=== PATIENT | male | born 1965 | race American Indian/Alaskan Native ===

== ENCOUNTER 2020-04-27 14:24 | Emergency (ER) | payer SELFPAY ==
[2020-04-27 15:06] LABS: Basophils # (Auto) 0.1 K/mm3 (0.0-0.1); Basophils % (Auto) 0.9 % (0.0-1.8); Eosinophils # (Auto) 0.2 K/mm3 (0.0-0.4); Eosinophils % (Auto) 2.4 % (0.0-4.3); Hematocrit 45.5 % (35.5-45.6); Hemoglobin 15.5 gm/dl (11.8-15.2); Lymphocytes # (Auto) 1.8 K/mm3 (1.2-5.4); Lymphocytes % (Auto) 28.2 % (13.4-35.0); Mean Corpuscular HGB Conc 34 % (32-34); Mean Corpuscular Volume 93 fl (84-94); Monocytes # (Auto) 0.9 K/mm3 (0.0-0.8); Monocytes % (Auto) 14.3 % (0.0-7.3); Platelet Count 409 K/mm3 (140-440); Red Blood Count 4.89 M/mm3 (3.65-5.03); Red Cell Distribution Width 14.2 % (13.2-15.2)
[2020-04-27 15:25] LABS: Alanine Aminotransferase 11 units/L (7-56); Albumin 4.3 g/dL (3.9-5); Blood Urea Nitrogen 10 mg/dL (9-20); Calcium 10.2 mg/dL (8.4-10.2); Hemolysis Index 11
[2020-04-27 15:32] LABS: BUN/Creatinine Ratio 17
[2020-04-27 15:35] LABS: Free T4 (Free Thyroxine) 1.39 ng/dL (0.76-1.46)
--- NOTE | 2020-04-27 17:38 | Emergency Department Report ---
- General Chief complaint: Weakness Stated complaint: NO FEELING IN LEG/TOES Time Seen by Provider: 04/27/20 17:27 Source: patient Mode of arrival: Ambulatory Limitations: No Limitations - History of Present Illness Initial comments: Chief complaint "I just feel cold." HPI: This is a 54-year-old male with history of Crohn's disease and tobacco dependence who presents with chills tingling in his fingers and toes. Also has had weight loss. He recently moved with his girlfriend 1 month ago from [place]. He has been under a lot of stress. He admits to poor appetite due to s tress. Symptoms have been present for 1 week. Patient denies abdominal pain. Denies diarrhea. Denies vomiting. He has not had primary medical care in quite some time. He smokes tobacco daily. He drinks alcohol once a week. MD Complaint: generalized weakness, tingling (In extremities, overall feels cold) -: Gradual, week(s) (1) Location: generalized Severity: moderate Consistency: constant Improves with: none Worsens with: none Context: other (Patient has been under stress., He recently moved from [facility] 30 days ago.) Associated Symptoms: loss of appetite - Related Data Allergies Allergy/AdvReac Type Severity Reaction Status Date / Time No Known Allergies Allergy Unverified 04/27/20 14:42 ED Review of Systems ROS: Stated complaint: NO FEELING IN LEG/TOES Other details as noted in HPI Comment: All other systems reviewed and negative Cardiovascular: denies: chest pain Gastrointestinal: denies: abdominal pain, nausea, vomiting, diarrhea ED Past Medical Hx - Past Medical History Previous Medical History?: No - Surgical History Past Surgical History?: No - Social History Smoking Status: Current Every Day Smoker ED Physical Exam - General Limitations: No Limitations General appearance: alert, in no apparent distress, other (Patient slender small stature) - Head Head exam: Present: atraumatic, normocephalic - Eye Eye exam: Present: normal appearance - ENT ENT exam: Present: mucous membranes moist - Neck Neck exam: Present: normal inspection, full ROM - Respiratory Respiratory exam: Present: normal lung sounds bilaterally. Absent: respiratory distress, wheezes, rales, rhonchi - Cardiovascular Cardiovascular Exam: Present: regular rate, normal rhythm, normal heart sounds. Absent: systolic murmur, diastolic murmur, rubs, gallop - GI/Abdominal GI/Abdominal exam: Present: soft, normal bowel sounds. Absent: distended, tenderness, guarding, rebound - Rectal Rectal exam: Present: deferred - Extremities Exam Extremities exam: Present: normal inspection - Back Exam Back exam: Present: normal inspection - Neurological Exam Neurological exam: Present: alert, oriented X3 - Psychiatric Psychiatric exam: Present: normal affect, normal mood - Skin Skin exam: Present: warm, dry, intact, normal color. Absent: rash ED Course Vital Signs 04/27/20 04/27/20 14:40 16:51 Temperature 98.1 F Pulse Rate 122 H 98 H Respiratory 23 16 Rate Blood Pressure 129/88 O2 Sat by Pulse 95 100 Oximetry ED Medical Decision Making - Lab Data Result diagrams: 04/27/20 14:47 04/27/20 14:47 Laboratory Results - last 24 hr 04/27/20 04/27/20 04/27/20 14:47 14:47 14:47 WBC 6.5 RBC 4.89 Hgb 15.5 H Hct 45.5 MCV 93 MCH 32 MCHC 34 RDW 14.2 Plt Count 409 Lymph % (Auto) 28.2 [place] % (Auto) 14.3 H Eos % (Auto) 2.4 Baso % (Auto) 0.9 Lymph # (Auto) 1.8 [place] # (Auto) 0.9 H Eos # (Auto) 0.2 Baso # (Auto) 0.1 Seg Neutrophils % 54.2 Seg Neutrophils # 3.5 Sodium 131 L Potassium 3.7 Chloride 90.2 L Carbon Dioxide 30 Anion Gap 15 BUN 10 Creatinine 0.6 L Estimated GFR > 60 BUN/Creatinine Ratio 17 Glucose 151 H Calcium 10.2 Total Bilirubin 0.60 AST 18 ALT 11 Alkaline Phosphatase 104 Total Protein 8.0 Albumin 4.3 Albumin/Globulin Ratio 1.2 TSH 0.848 Free T4 1.39 - Medical Decision Making Patient has chills tingling in extremities weight loss. Considerations: Malignancy. Lung malignancy is a consideration. Patient does have a history of tobacco dependence. At this stage patient will require colonoscopy and prostate exam. I do not detect an emergent life-threatening condition at this time. Patient does have mild hyponatremia reflective of patient's nutritional status. He understands to follow-up with our outpatient medicine physician. Vital Signs - 24 hr 04/27/20 04/27/20 14:40 16:51 Temperature 98.1 F Pulse Rate 122 H 98 H Respiratory 23 16 Rate Blood Pressure 129/88 O2 Sat by Pulse 95 100 Oximetry Critical care attestation.: If time is entered above; I have spent that time in minutes in the direct care of this critically ill patient, excluding procedure time. ED Disposition Clinical Impression: Malaise, Weight loss, Hyponatremia Disposition: TO HOME OR SELFCARE Is pt being admited?: No Does the pt Need Aspirin: No Condition: Stable Instructions: Weakness, [id number] Additional Instructions: Please see our physician for a full physical exam. You will need a prostate exam, colonoscopy and chest x-ray. Referrals: CRISTY THOMPSON MD [Staff Physician] - 3-5 Days
[2020-04-27 18:44] VITALS: BP 127/74
== END 2020-04-27 18:20 | disposition home or self-care (01) ==
LOC: ED 14:24
DX: E87.1 Hypo-osmolality and hyponatremia (principal); R53.83 Other fatigue; R63.4 Abnormal weight loss; F17.200 Nicotine dependence, unspecified, uncomplicated
CPT/HCPCS: 36415; 80053; 84439; 84443; 85025; 99283